=== PATIENT | male | born 1965 | race Caucasian/White ===

== ENCOUNTER 2024-02-17 05:16 | Emergency (ER) | payer OTHER, SELFPAY ==
[2024-02-17 05:19] VITALS: BP 149/80
[2024-02-17 06:02] LABS: % Basophils 0.8 % (0-2); % Eosinophils 2.2 % (0-6); % Immature Granulocytes 0.5 % (0-0.5); % Lymphocytes 32.4 % (20.5-51.1); % Monocytes 11.1 % (1.7-9.3); Absolute Eosinophils 0.1 10^3/uL (0-0.7); Absolute Lymphocytes 1.2 10^3/uL (1.2-3.4); Absolute Monocytes 0.4 10^3/uL (0.1-0.6); Hematocrit 41.3 % (39.0-52.0); Hemoglobin 14.1 g/dL (13.0-18.0); Mean Corp Hgb Conc. 34.1 g/dL (33.0-37.0); Mean Corpuscular Hgb 32.3 pg (27.0-31.0); Mean Corpuscular Volume 94.7 fL (80.0-94.0); Mean Platelet Volume 10.9 fL (7.4-10.4); Nucleated Red Blood Cells % 0 % (-); Platelet Count 193 10^3/uL (130-400); Red Blood Cell Count 4.36 10^6/uL (4.70-6.10); Red Cell Dist. Width 12.9 % (11.5-14.5); White Blood Cell Count 3.7 10^3/uL (4.8-10.8)
[2024-02-17 06:13] LABS: ALT (SGPT) 29 U/L (0-50); AST (SGOT) 30 U/L (17-59); Albumin 4.3 g/dl (3.5-5.0); Alkaline Phosphatase 73 U/L (38-126); Blood Urea Nitrogen 21 mg/dl (9-20); Calcium 9.1 mg/dl (8.4-10.2); Carbon Dioxide 30 mmol/L (22-30); Chloride 101 mmol/L (98-107); Glucose 91 mg/dl (70-99); Potassium 4.2 mmol/L (3.5-5.1); Sodium 139 mmol/L (135-145); Total Bilirubin 0.4 mg/dl (0.2-1.3); eGFR > 60.00
[2024-02-17 06:20] LABS: NT-proBNP 46.3 pg/ml; Troponin I < 0.012 ng/ml
--- NOTE | 2024-02-17 07:46 | ED.GENMED ---
History of Present Illness
General
Chief Complaint: Chest Pain
Source: patient
Exam Limitations: none
Time Seen by Provider: 02/17/24 07:41
Nursing documentation reviewed up to this point in time: agreed with
History of Present Illness
History of Present Illness:
58-year-old male presents emergency department due to left-sided chest pain that began at 4 AM. He also had a few periods of left arm pain yesterday.
Past History
Past History
ED Past Medical History: Hypercholesterolemia
ED Past Surgical History: None
Social History
Tobacco: Non-smoker
Alcohol: None
Drug: None
Personal:
Living: with family
Employment: Employed
Review of Systems
Review of Systems
Allergies reviewed?: Yes
All Other Systems: Not applicable
Constitutional: Reports no symptoms
EENT: Reports no symptoms
Respiratory: Reports no symptoms
Cardiac: Reports chest pain
ABD/GI: Reports no symptoms
: Reports no symptoms
Musculoskeletal: Reports no symptoms
Skin: Reports no symptoms
Neurological: Reports no symptoms
Endocrine: Reports no symptoms
Hematologic/Lymphatic: Reports no symptoms
Psychiatric: Reports no symptoms
Phy Exam
Physical Exam
Physical Exam:
Physical Exam
General: no apparent distress, not acutely ill
Neck: supple. no meningeal signs. normal posterior pharynx
Heart: s1/s2 regular rate and rhythm, no murmur. equal radial
pulses.
HEENT: Pupils equal round reactive to light, EOMI
Lungs: no acute respiratory distress. clear bilaterally
Abdomen: normal bowel sounds. not tender. no CVAT
Neuro: alert and oriented. no focal neurological deficits cranial nerves II through XII intact
Skin: no rash
Psychiatric: well kept. interactive and cooperative
Extremities: no edema. no calf tenderness. negative homans. good distal pulses
Scores
Heart Score for Chest Pain Patients
STEMI patient?: No
History: Slightly or Non-Suspicious
ECG: Normal
Age: >45 - <65 years
Risk Factors: 1 or 2 Risk Factors
Troponin: </= Normal Limit
Heart Score for Chest Pain Patients: 2
Heart Score Risk: 2.5% MACE over next 6 weeks
Course
Orders/Labs/Results
Orders:
Orders
02/17/24 05:23
Electrocardiogram (*1) Urgent
Reason for Study: Chest Pain
EKG- Treatment ONCE
02/17/24 05:24
Cardiac Monitoring- Treatment ONCE
EKG- Treatment ONCE
IV Insert/Care/Rem.- Treatment PRN
CR Chest - 2 Views Urgent
Comment:
Reason For Exam: respiratory distress
O2 Therapy [RESP] Urgent
Titrate/Wean O2 to maintain O2 sat greater than (%): 93
Special Instructions: TO MAINTAIN CONTINUOUS O2 SATS >/= 93%
Pulse Ox/cont/shift [RESP] Urgent
Quantity: 1
Special Instructions: continuous pulse ox
02/17/24 05:43
Complete Blood Count/With Diff Urgent
Comprehensive Metabolic Panel Urgent
NT-proBNP Urgent
Troponin I Urgent
02/17/24 09:01
Troponin I Urgent
Abnormal Lab Results
02/17/24
05:43
WBC 3.7 L 10^3/uL
(4.8-10.8)
RBC 4.36 L 10^6/uL
(4.70-6.10)
MCV 94.7 H fL
(80.0-94.0)
MCH 32.3 H pg
(27.0-31.0)
MPV 10.9 H fL
(7.4-10.4)
Monocytes % 11.1 H %
(1.7-9.3)
BUN 21 H mg/dl
(9-20)
02/17/24 05:43
02/17/24 05:43
Vital Signs
Initial and Last Documented VS:
Initial Vital Signs
Temp Pulse Resp BP Pulse Ox
97.9 F 61 20 149/80 98
02/17/24 05:19 02/17/24 05:19 02/17/24 05:19 02/17/24 05:19 02/17/24 05:19
Last Documented Vital Signs
Temp Pulse Resp BP Pulse Ox
97.9 F 55 12 125/69 98
02/17/24 05:19 02/17/24 09:10 02/17/24 09:10 02/17/24 09:10 02/17/24 09:10
MDM/Problems Addressed
Differential Diagnosis Includes:
ACS, PE, pneumonia
MDM/Problems Addressed:
58-year-old male with chest pain. Doubt ACS or PE. No signs of pneumonia. Serial troponins negative.
*Radiology
Radiology exam reviewed: preliminary read by ED provider (Chest x-ray no acute finding)
*Pulse Oximetry
Patient hypoxic: no
*EKG
Interpreted by ED Provider?: Yes
EKG Intrepretation Date: 02/17/24
EKG Intrepretation Time: 05:30
Interpretation: abnormal
Comparison EKG: no comparison EKG present
Heart Rate: 53
Rate: bradycardiac
Rhythm: sinus
[place]: normal axis
Interval: normal interval
QRS Pattern: normal QRS
Ischemia: no ischemia
*[employer] Professor Interpretation
Rate: bradycardiac
Interpretation: abnormal
Heart Rate: 52
Rhythm: sinus
*Critical Care Note
Total Time (30-74mins, 75-104mins- exclusive of procedures): Not Applicable
Data Reviewed
Review of Other/Old Records Reveals: Radiology Studies (Prior calcium score 119)
Source: records
Further Testing Considered But Not Given:
CT chest not indicated
Patient Management
Social determinants of health affecting care: Living situation and Strong social support
Escalation/DeEscalation of care consider admission/obs:
Admit not indicated
ED Attending Note
-
Portions of this chart may have been created with voice recognition software.� Occasional wrong word or��sound alike� substitutions may have occurred due to the inherent limitations of voice recognition software.
Discharge Plan
Departure
Patient Disposition: Home (Routine Discharge)
Date of Disposition: 02/17/24
Time of Disposition: 10:10
Patient with high blood pressure during this ER visit?: Yes
Condition: Good
Discharge Problem:
Chest pain
Instructions: Chest Pain DCA Follow Up, BLOOD PRESSURE
Referrals:
Agustin Quiñones, DO [Family Provider] -
Activity Restrictions/Additional Instructions:
Return for any concerns
Interventions
Interventions:
*Risk Screen - Suicide Last Done: 02/17/24 05:19
*General Assessment Last Done: 02/17/24 05:19
*Neglect/Abuse Screening Last Done: 02/17/24 05:19
ED- Fall Risk Assessment Last Done: 02/17/24 05:19
*ED COVID-19 Vaccine History Last Done: 02/17/24 05:19
ED- Cardiac Assessment Last Done: 02/17/24 09:08
Discharge Date and Time
Print Language: ROMANIAN
[2024-02-17 09:08] VITALS: BMI 24.9
[2024-02-17 09:10] VITALS: BP 125/69
[2024-02-17 09:37] LABS: Troponin I < 0.012 ng/ml
== END 2024-02-17 10:38 | disposition home or self-care (01) ==
LOC: EMR 05:16
PROVIDERS: Student in an Organized Health Care Education/Training Program; EMERGENCY PHYSICIAN Emergency Medicine; FAMILY PHYSICIAN Family Medicine
DX: R07.89 Other chest pain (principal); M79.602 Pain in left arm; E78.00 Pure hypercholesterolemia, unspecified
CPT/HCPCS: 99283; 71046; 80053; 83880; 84484; 85025; 93005